=== PATIENT | male | born 1995 | race African-American/Black ===

== ENCOUNTER 2018-02-22 21:03 | Emergency (ER) | payer SELFPAY ==
[~2018-02-22] VITALS: Ht 185.4 cm; Wt 64.5 kg
[~2018-02-22 21:03] MED LIST: INTUNIV4 MG PO; LAMICTAL100 MG PO; LITHIUM CARBON300 M1 PO; MELATONIN3 MG PO
[2018-02-22] MEDS ORDERED: ONDANSETRON ODT8 MG PO (22:13)
[2018-02-22] MEDS ORDERED: PROTONIX20 MG PO (22:13)
[2018-02-22 22:29] VITALS: BP 112/68
== END 2018-02-22 22:29 | disposition home or self-care (01) ==
LOC: EME 21:03
DX: R10.9 Unspecified abdominal pain (principal); F17.200 Nicotine dependence, unspecified, uncomplicated
CPT/HCPCS: 99281; 99284